=== PATIENT | female | born 1980 | race Two or more races ===

== ENCOUNTER 2019-11-21 10:54 | Outpatient (CLI) | payer OTHER ==
[2019-11-21] MEDS ORDERED: FLONASE16 GM NASAL (11:18)
[2019-11-21] MEDS ORDERED: NEILMED SINUS1 EAC1 NASAL (11:21)
== END 2019-11-21 16:30 | disposition home or self-care (01) ==
LOC: OFIC 805 10:54
PROVIDERS: ATTEND Otolaryngology
DX: H69.83 Other specified disorders of Eustachian tube, bilateral (principal); H61.23 Impacted cerumen, bilateral; J30.89 Other allergic rhinitis